=== PATIENT | male | born 1945 | race Caucasian/White ===

== ENCOUNTER → 2025-02-26 07:49 | Outpatient (REF) | payer OTHER, SELFPAY | LOC: RCS 07:49 | PROVIDERS: ATTENDING PHYSICIAN Internal Medicine; FAMILY PHYSICIAN Family Medicine | DX: I10 Essential (primary) hypertension (principal); I48.3 Typical atrial flutter; I50.32 Chronic diastolic (congestive) heart failure; I45.4 Nonspecific intraventricular block | CPT/HCPCS: 93306 ==